=== PATIENT | male | born 1950 | race Caucasian/White ===

== ENCOUNTER 2017-11-30 19:25 | Emergency (ER) | payer OTHER ==
[~2017-11-30] VITALS: Ht 177.8 cm; Wt 96.8 kg
[2017-11-30 20:49] LABS: HEMATOCRIT 44.9 % (38.0-50.0); MCH 32.5 PG (29.0-34.0); MCHC 35.6 G/DL (30.0-36.0); MCV 91.3 FL (86-99); PLATELET COUNT 155 K/uL (156-360); RBC DIS.WIDTH-CV 12.1 % (11.8-14.6); RBC DIS.WIDTH-SD 40.1 % (39-53); RED BLOOD COUNT 4.92 M/uL (4.00-5.50); WHITE BLOOD COUNT 8.1 K/uL (4.1-10.2)
[2017-11-30 20:52] LABS: CHLORIDE 103 mEq/L (99-109); POTASSIUM 4.6 mEq/L (3.7-5.4); SODIUM 140 mEq/L (136-147)
[2017-11-30 20:54] LABS: GLUCOSE 115 mg/dL (70-99)
[2017-11-30 20:57] LABS: CREATININE 0.8 mg/dL (0.6-1.3); GFR ESTIMATE (CALCULATED) > 59 mL/min/ (58.99-99999)
[2017-11-30 20:58] LABS: UREA NITROGEN (BUN) 15 mg/dL (9-23)
[2017-11-30] MEDS ORDERED: KEFLEX500 MG PO (21:08)
[2017-11-30 21:24] VITALS: BP 127/82
== END 2017-11-30 21:24 | disposition home or self-care (01) ==
LOC: EME 19:25
DX: L03.116 Cellulitis of left lower limb (principal); Z87.891 Personal history of nicotine dependence; Z86.69 Personal history of other diseases of the nervous system and sense organs; Z88.6 Allergy status to analgesic agent
CPT/HCPCS: 80048; 85027; 99281; 99284